=== PATIENT | female | born 1960 | race Caucasian/White ===

== ENCOUNTER → 2018-02-02 | Outpatient (CLI) | payer OTHER ==
--- NOTE | 2018-02-02 18:20 | MR ---
EXAMINATION TYPE: MR knee RT wo con DATE OF EXAM: 02/02/2018 COMPARISON: NONE HISTORY: Right knee pain, right knee effusion TECHNIQUE: Multiplanar, multisequence imaging of the right knee is performed without IV contrast. FINDINGS: MEDIAL MENISCUS: Posterior horn medial meniscus has increased signal. This has some communication wit h the inferior articular surface near its anterior extent. An oblique tear or internal derangement sh ould be considered. Anterior horn of the medial meniscus appears intact. LATERAL MENISCUS: Anterior and posterior horns are intact without tear. CRUCIATE LIGAMENTS: The anterior and posterior cruciate ligaments are intact and unremarkable. COLLATERAL LIGAMENTS: The medial collateral ligament and lateral collateral ligament complex are inta ct and unremarkable. EXTENSOR MECHANISM: Visualized quadriceps and patellar tendons are intact. EFFUSION: Small to moderate joint effusion is present. POPLITEAL CYST: There is a popliteal cyst posterior to the distal femur measuring 3.2 x 0.9 cm. TRICOMPARTMENT SPACES: There appears to be some mild narrowing of the medial lateral compartment join t spaces. CARTILAGE: There is some thinning of the medial compartment cartilage. Lateral compartment cartilage is thinning of the medial aspect of the lateral tibial plateau but otherwise has a more normal appear ance. Patellofemoral joint space cartilage appears normal. BONE MARROW SIGNAL: Some mild edema may be within the lateral tibial plateau below the lateral tibial spine on T2-weighted sequences. This is less apparent on the T1-weighted sequences. Small chondral d efect is not excluded near this level. Series 501, image 14. OTHER: There is a mass posterior to the lateral compartment joint space measuring 4.0 cm in cranioca udal dimension by 3.6 cm in transverse dimension by 1.8 cm in AP dimension. This is hyperintense on T 1-weighted images and isointense with the subcutaneous fat on T2-weighted images and proton density w eighted images. This is displacing vascular structures. This is just posterior to the joint space and extends to nearly the fibular head level. Consider a lipoma. Consider liposarcoma, MRI with contrast recommended for additional workup. IMPRESSION: 1. 4.0 x 3.6 x 1.8 cm mass posterior to the lateral tibia follows the pulse sequence of fat. A lipoma is within the differential. A liposarcoma should be evaluated for; a post contrast MRI of the knee i s recommended. 2. There is a small posterior superior popliteal cyst following the pulse sequence of fluid. 3. Oblique tear versus internal derangement posterior horn medial meniscus. 4. Mild osteoarthritic degenerative change. 5. Small contusion may be inferior to the lateral tibial spine. An osteochondral defect is within the differential just above this edema.
== END | disposition home or self-care (01) ==
LOC: RADMRIMAIN 07:52
PROVIDERS: ATTEND Orthopaedic Surgery Sports Medicine
DX: M17.11 Unilateral primary osteoarthritis, right knee (principal); M71.21 Synovial cyst of popliteal space [Baker], right knee; R22.41 Localized swelling, mass and lump, right lower limb; S80.11XA Contusion of right lower leg, initial encounter

== ENCOUNTER → 2019-01-25 | Outpatient (CLI) | payer BC ==
--- NOTE | 2019-01-25 13:29 | BD ---
EXAMINATION TYPE: Axial Bone Density DATE OF EXAM: 01/25/2019 COMPARISON: NONE CLINICAL HISTORY: Postmenopausal female. Osteoporosis screening. Height: 5 FT 1 1/2 IN Weight: 215 FRAX RISK QUESTIONS: Secondary Osteoporosis: 3. Menopause before 45: YES RISK FACTORS HISTORY OF: Family History of Osteoporosis: YES Active: NO Postmenopausal woman: PARTIAL HYST AGE 34 SYMPTOMS SHORTLY AFTER Take estrogen and/or progesterone medications: TOOK HRT BRIEFLY Lost more than 2 inches in height since high school: YES MEDICATIONS: Additional Medications: NONE Additional History: EXAM MEASUREMENTS: Bone mineral densitometry was performed using the [employer] System. Bone mineral density as measured about the Lumbar spine is: ----- L1-L4(G/cm2): 1.112 T Score Values are as follows: ----- L2: -1.3 ----- L3: -0.2 ----- L4: 0.3 ----- L1-L4: -0.6 BASELINE Bone mineral density about the R hip (g/cm2): 0.835 Bone mineral density about the L hip (g/cm2): 0.912 T Score values are as follows: -----R Neck: -1.5 -----L Neck: -0.9 -----R Total: -0.4 -----L Total: 0.2 BASELINE IMPRESSION: Osteopenia (T Score between -2.5 and -1). There is slightly increased risk of fracture and the patient may be considered for treatment. Re-Screen 2-5 years. NOTE: T-SCORE=SD OF THE YOUNG ADULT MEAN.
--- NOTE | 2019-01-26 10:19 | MM ---
Reason for exam: screening (asymptomatic). Last mammogram was performed 1 year ago. History: Patient is postmenopausal. Family history of breast cancer in mother at age 71. Core biopsy of the left breast. Excisional biopsy of the left breast. Excisional biopsy of the right breast. Took estrogen for 2 years beginning at age 36. Took progesterone for 5 years. Physical Findings: A clinical breast exam by your physician is recommended on an annual basis and results should be correlated with mammographic findings. MG 3D Screening Mammo W/Cad Bilateral CC and MLO view(s) were taken. Prior study comparison: January 19, 2018, mammogram, performed at [facility]. November 04, 2016, mammogram, performed at [facility]. July 08, 2011, bilateral digital screening mammo w/CAD. June 18, 2010, bilateral digital screening mammogram. The breast tissue is heterogeneously dense. This may lower the sensitivity of mammography. Finding #1: There is a 7 mm circumscribed oval mass in the posterior, central position of the right breast on CC (29/82). Finding #2: There are typically benign round calcifications in both breasts. Previous mammotome biopsy in the left breast. There is a chronic nodularity in the right breast. There is no discrete abnormality. New finding since January 19, 2018 and November 04, 2016. ASSESSMENT: Incomplete: need additional imaging evaluation, BI-RAD 0 RECOMMENDATION: Special view mammogram of the right breast. If lesion persists on supplemental views, image directed ultrasound is recommended. [facility] will attempt to contact patient to return for supplemental views and ultrasound if indicated.
== END ==
LOC: RADMAMWWP 09:38
PROVIDERS: ATTEND Family Medicine
DX: Z12.31 Encounter for screening mammogram for malignant neoplasm of breast (principal); M85.80 Other specified disorders of bone density and structure, unspecified site; Z78.0 Asymptomatic menopausal state
CPT/HCPCS: 77063; 77067; 77080

== ENCOUNTER → 2019-02-04 | Outpatient (CLI) | payer BC ==
--- NOTE | 2019-02-05 08:00 | MM ---
Reason for exam: additional evaluation requested from abnormal screening. Last mammogram was performed less than 1 month ago. History: Patient is postmenopausal. Family history of breast cancer in mother at age 71. Core biopsy of the left breast. Excisional biopsy of the left breast. Excisional biopsy of the right breast. Took estrogen for 2 years beginning at age 36. Took progesterone for 5 years. Physical Findings: Nurse did not find any significant physical abnormalities on exam. MG 3D Work Up W/Cad RT Spot compression CC, spot compression MLO, and LM view(s) were taken of the right breast. Prior study comparison: January 25, 2019, bilateral MG 3d screening mammo w/cad. January 19, 2018, mammogram, performed at [facility]. The breast tissue is heterogeneously dense. This may lower the sensitivity of mammography. Finding: There is a 4 mm circumscribed round mass in the lower quadrant, posterior, middle, central position of the right breast that persists on additional views. These results were verbally communicated with the patient and result sheet given to the patient on 02/04/19. ASSESSMENT: Incomplete: need additional imaging evaluation, BI-RAD 0 RECOMMENDATION: Ultrasound of the right breast.
--- NOTE | 2019-02-05 08:11 | USB ---
Reason for exam: additional evaluation requested from abnormal screening. History: Patient is postmenopausal. Family history of breast cancer in mother at age 71. Core biopsy of the left breast. Excisional biopsy of the left breast. Excisional biopsy of the right breast. Took estrogen for 2 years beginning at age 36. Took progesterone for 5 years. US Breast Workup Limited RT Right limited breast ultrasound including focal area of concern, retroareolar and axilla demonstrates a 3 x 2 x 4mm oval, cystic lesion at 6 o'clock. This likely corresponds to the posterior central asymmetric density. 6 month follow up mammogram recommended. These results were verbally communicated with the patient and result sheet given to the patient on 02/04/19. ASSESSMENT: Probably benign, BI-RAD 3 RECOMMENDATION: Follow-up diagnostic mammogram of the right breast in 6 months.
== END ==
LOC: RADMAMWWP 15:06
PROVIDERS: ATTEND Family Medicine
DX: R92.8 Other abnormal and inconclusive findings on diagnostic imaging of breast (principal)
CPT/HCPCS: 77061; 77065

== ENCOUNTER → 2019-08-23 | Outpatient (CLI) | payer BC ==
--- NOTE | 2019-08-23 09:56 | MM ---
Reason for exam: follow-up at short interval from prior study. Last mammogram was performed 7 months ago. History: Patient is postmenopausal. Family history of breast cancer in mother at age 71. Core biopsy of the left breast. Excisional biopsy of the left breast. Excisional biopsy of the right breast. Took estrogen for 2 years beginning at age 36. Took progesterone for 5 years. Physical Findings: Nurse did not find any significant physical abnormalities on exam. MG 3D Diag Mammo W/Cad RT CC and MLO view(s) were taken of the right breast. Prior study comparison: February 04, 2019, right breast MG 3d work up w/cad RT. January 25, 2019, bilateral MG 3d screening mammo w/cad. The breast tissue is heterogeneously dense. This may lower the sensitivity of mammography. No suspicious abnormality. Right 4.5mm lower inner quadrant middle depth mass, cyst on prior ultrasound, is stable back to 2016 subtly. These results were verbally communicated with the patient and result sheet given to the patient on 08/23/19. ASSESSMENT: Benign, BI-RAD 2 RECOMMENDATION: Return to routine screening mammogram schedule for both breasts. Back on schedule for January 2020.
== END | disposition home or self-care (01) ==
LOC: RADMAMWWP 07:43
PROVIDERS: ATTEND Family Medicine
DX: R92.8 Other abnormal and inconclusive findings on diagnostic imaging of breast (principal)
CPT/HCPCS: 77061; 77065

== ENCOUNTER → 2020-04-21 | Outpatient (CLI) | payer BC ==
--- NOTE | 2020-04-25 08:25 | MM ---
Reason for exam: screening (asymptomatic). Last mammogram was performed 8 months ago. History: Patient is postmenopausal. Family history of breast cancer in mother at age 71. Core biopsy of the left breast. Excisional biopsy of the left breast. Excisional biopsy of the right breast. Took estrogen for 2 years beginning at age 36. Took progesterone for 5 years. Physical Findings: A clinical breast exam by your physician is recommended on an annual basis and results should be correlated with mammographic findings. MG 3D Screening Mammo W/Cad Bilateral CC and MLO view(s) were taken. Prior study comparison: August 23, 2019, right breast MG 3d diag mammo w/cad RT. February 04, 2019, right breast MG 3d work up w/cad RT. The breast tissue is heterogeneously dense. This may lower the sensitivity of mammography. There are benign appearing round calcifications bilaterally. Previous mammotome biopsy in the left breast. There is chronic nodularity in the right breast. There is no discrete abnormality. ASSESSMENT: Benign, BI-RAD 2 RECOMMENDATION: Routine screening mammogram of both breasts in 1 year.
== END | disposition home or self-care (01) ==
LOC: RADMAMWWP 14:59
PROVIDERS: ATTEND Family Medicine
DX: Z80.3 Family history of malignant neoplasm of breast (principal)
CPT/HCPCS: 77063; 77067

== ENCOUNTER → 2021-02-28 | Outpatient (CLI) | payer BC | END | disposition home or self-care (01) | LOC: LABPAT 08:23 | PROVIDERS: ATTEND Surgery | DX: Z20.822 Contact with and (suspected) exposure to COVID-19 (principal) | CPT/HCPCS: U0003; C9803; U0005 ==

== ENCOUNTER → 2021-03-02 | Day surgery (SDC) | payer BC ==
[2021-02-27 17:38] VITALS: BMI 38.0
[~2021-03-02] MED LIST: LACTATED RINGERS 1,000 ML IV SCH; LIDOCAINE 1% INJ 10MG/ML (20 ML MDV) ONE; PROPOFOL 10 MG/ML 20 ML VIAL IV ONE
[2021-03-02 08:34] VITALS: TEMP 97.7
[2021-03-02 08:45] LABS: Glucose,Whole Blood 127 mg/dL (75-99)
--- NOTE | 2021-03-02 08:48 | P.GSHP ---
History of Present Illness H&P Date: 03/02/21 60-year-old female presents for an upper endoscopy. She has had recent epigastric pain and increase in reflux symptoms. She states she has had this for many years, however symptoms have worsened recently. She states she has tried Prilosec in the past with success. She has stopped taking that medication on her own. She denies any nausea or vomiting. - Review of Systems All systems: negative Past Medical History Past Medical History: GERD/Reflux, Hyperlipidemia Additional Past Medical History / Comment(s): hypoglycemia History of Any Multi-Drug Resistant Organisms: None Reported Past Surgical History: Breast Surgery, Section, Hysterectomy Additional Past Surgical History / Comment(s): COLONOSCOPY. LT/RT LUMPECTOMY Past Anesthesia/Blood Transfusion Reactions: Postoperative Nausea & Vomiting (PONV) Smoking Status: Former smoker - Past Family History Mother Family Medical History: Cancer Daughter(s) Family Medical History: Deep Vein Thrombosis (DVT) Medications and Allergies Home Medications Medication Instructions Recorded Confirmed Type Ezetimibe [Zetia] 10 mg PO HS 02/27/21 03/02/21 History Allergies Allergy/AdvReac Type Severity Reaction Status Date / Time Penicillins Allergy Rash/Hives Verified 03/02/21 08:29 Surgical - Exam Osteopathic Statement: *. No significant issues noted on an osteopathic structural exam other than those noted in the History and Physical/Consult. Vital Signs Temp Resp BP Pulse Ox 97.7 F 16 134/61 96 03/02/21 08:32 03/02/21 08:32 03/02/21 08:32 03/02/21 08:32 - General well nourished, no distress - Respiratory normal respiratory effort - Abdomen Abdomen: soft, non tender Results - Labs Abnormal Lab Results - Last 24 Hours (Table) 03/02/21 Range/Units 08:40 POC Glucose (mg/dL) 127 H (75-99) mg/dL Assessment and Plan Plan: 60-year-old female with history of gastroesophageal reflux disease and epigastric pain presents for upper endoscopy. Risks, benefits and alternatives were provided to the patient. She did provide consent. Further recommendations will be made after procedure is completed.
--- NOTE | 2021-03-02 08:59 | P.PCN ---
Date of Procedure: 03/02/21 Preoperative Diagnosis: GERD Epigastric pain Postoperative Diagnosis: GERD Gastritis Duodenitis Procedure(s) Performed: EGD with biopsy Anesthesia: BURTON Surgeon: Igor Templeton Pathology: other (Biopsies of duodenum, antrum, esophagus) Condition: stable Disposition: same day Indications for Procedure: 60-year-old female presents today for upper endoscopy. She has had recent worsening of symptoms of reflux and epigastric pain. Risks, benefits and alternatives were provided to the patient. She did provide consent prior to the endoscopy suite. Operative Findings: Gastritis Duodenitis Description of Procedure: The patient underwent a venotomy suite and placed in left lateral decubitus position and adequate sedation was achieved using conscious sedation. A bite block was placed and an endoscope was placed in the oropharynx and advanced under endoscopic visualization. The endoscope was advanced through the esophagus into the stomach, through the gastric antrum and in through the pylorus. The third portion of the duodenum was visualized. The endoscope was then slowly withdrawn. The first portion of duodenum was noted to have inflammatory changes. Biopsies were taken. The antrum was noted to have inflammatory changes. Biopsies were taken. The gastric body distended normally and the gastric folds appeared normal and flattened with insufflation. No evidence of ulceration. A rectopexy of the fundus and GE junction revealed no significant hiatal hernia. The esophagus appeared endoscopically normal. Biopsies were taken. Excess air was removed and the scope was withdrawn. The procedure at this point was completed and the patient was returned to postanesthesia care unit in stable condition.
[2021-03-02 09:27] VITALS: BP 115/71; PULSE 75; RESP 16
== END | disposition home or self-care (01) ==
LOC: ORWHC2ENDO 08:17
PROVIDERS: ATTEND Surgery
DX: K21.00 Gastro-esophageal reflux disease with esophagitis, without bleeding (principal); K29.50 Unspecified chronic gastritis without bleeding; K29.80 Duodenitis without bleeding; K31.89 Other diseases of stomach and duodenum; E78.5 Hyperlipidemia, unspecified; E16.2 Hypoglycemia, unspecified; Z98.890 Other specified postprocedural states; Z90.710 Acquired absence of both cervix and uterus; Z91.89 Other specified personal risk factors, not elsewhere classified; Z87.891 Personal history of nicotine dependence; Z79.899 Other long term (current) drug therapy; Z88.0 Allergy status to penicillin; Z80.9 Family history of malignant neoplasm, unspecified; Z82.49 Family history of ischemic heart disease and other diseases of the circulatory system
CPT/HCPCS: 88305; 43239; J2001; J2704

== ENCOUNTER → 2021-08-06 | Outpatient (CLI) | payer BC ==
--- NOTE | 2021-08-08 09:38 | MM ---
Reason for exam: screening (asymptomatic). Last mammogram was performed 1 year and 3 months ago. History: Patient is postmenopausal. Family history of breast cancer in mother at age 71. Core biopsy of the left breast. Excisional biopsy of the left breast. Excisional biopsy of the right breast. Took estrogen for 2 years beginning at age 36. Took progesterone for 5 years. Physical Findings: A clinical breast exam by your physician is recommended on an annual basis and results should be correlated with mammographic findings. MG 3D Screening Mammo W/Cad Bilateral CC, MLO, and XCCL view(s) were taken. Prior study comparison: April 21, 2020, bilateral MG 3d screening mammo w/cad. August 23, 2019, right breast MG 3d diag mammo w/cad RT. January 25, 2019, bilateral MG 3d screening mammo w/cad. January 19, 2018, mammogram, performed at [facility]. There are scattered fibroglandular densities. Previous mammotome biopsy in the left breast. No significant changes when compared with prior studies. ASSESSMENT: Negative, BI-RAD 1 RECOMMENDATION: Routine screening mammogram of both breasts in 1 year.
== END | disposition home or self-care (01) ==
LOC: RADMAMWWP 14:04
PROVIDERS: ATTEND Family Medicine
DX: Z12.31 Encounter for screening mammogram for malignant neoplasm of breast (principal); Z78.0 Asymptomatic menopausal state; Z80.3 Family history of malignant neoplasm of breast
CPT/HCPCS: 77063; 77067

== ENCOUNTER → 2022-09-06 | Outpatient (CLI) | payer BC ==
--- NOTE | 2022-09-09 10:13 | MM ---
Reason for Exam: Screening (asymptomatic). Last mammogram was performed 1 year(s) and 1 month(s) ago. Patient History: Menarche at age 13. First Full-Term at age 19. Hysterectomy at age 35. Postmenopausal. Estrogen for 2 years from age 36 until age 38. Patient used Progesterone for 5 years. Core Biopsy on the Left side. Excisional Biopsy on the Right side. Excisional Biopsy on the Left side. Mother had breast cancer, right, age 71. Mother had breast cancer, left, age 73. Mother had breast cancer, bilateral, age 78. Sister had breast cancer, age 56. Sister tested for BRCA1 outcome was negative. Risk Values: Catarina 5 year model risk: 8.4%. NCI Lifetime model risk: 32.7%. Prior Study Comparison: 08/23/2019 Right Diagnostic Mammogram, [facility]. 04/21/2020 Bilateral Screening Mammogram, [facility] 08/06/2021 Bilateral Screening Mammogram, [facility]. Tissue Density: There are scattered fibroglandular densities. Findings: Analyzed By CAD. Occasional small scattered round to auscultation bilaterally is redemonstrated. Mammotome biopsy clip left breast redemonstrated. Well-defined round 6 mm mass in the right breast is stable or smaller in size from prior studies posteriorly. Benign-appearing bilateral axillary lymph nodes are redemonstrated. There is no suspicious new group of microcalcifications or new suspicious mass in either breast. Overall Assessment: Benign, BI-RAD 2 Management: Screening Mammogram of both breasts in 1 year. A clinical breast exam by your physician is recommended on an annual basis and results should be correlated with mammographic findings. Electronically signed and approved by: Deni Curtis M.D.
== END | disposition home or self-care (01) ==
LOC: RADMAMWWP 12:42
PROVIDERS: ATTEND Family Medicine
DX: Z12.31 Encounter for screening mammogram for malignant neoplasm of breast (principal); Z80.3 Family history of malignant neoplasm of breast; Z78.0 Asymptomatic menopausal state
CPT/HCPCS: 77063; 77067

== ENCOUNTER → 2023-11-03 | Outpatient (CLI) | payer BC ==
--- NOTE | 2023-11-04 21:20 | MM ---
Reason for Exam: Screening (asymptomatic). Last mammogram was performed 1 year(s) and 2 month(s) ago. Patient History: Menarche at age 13. First Full-Term at age 19. Hysterectomy at age 35. Postmenopausal. Estrogen for 2 years from age 36 until age 38. Patient used Progesterone for 5 years. Core Biopsy on the Left side. Excisional Biopsy on the Right side. Excisional Biopsy on the Left side. Mother had breast cancer, right, age 71. Mother had breast cancer, left, age 73. Mother had breast cancer, bilateral, age 78. Sister had breast cancer, age 56. Sister tested for BRCA1 outcome was negative. Risk Values: Liana 5 year model risk: 8.9%. NCI Lifetime model risk: 31.0%. Prior Study Comparison: 04/21/2020 Bilateral Screening Mammogram, [facility]. 08/06/2021 Bilateral Screening Mammogram, [facility]. 09/06/2022 Bilateral MG 3D screening mammo w/cad, [facility]. Tissue Density: There are scattered fibroglandular densities. Findings: Analyzed By CAD. There is a microclip left breast from prior biopsy. On the left CC view in the subareolar region, there is increasing asymmetric density for which further evaluation is recommended. No other significant change. Overall Assessment: Incomplete: need additional imaging evaluation, BI-RAD 0 Management: Special View Mammogram of the left breast. Diagnostic Breast Ultrasound of the left breast. Additional views to include spot 3-D CC, 3-D CC rolled, and 3-D lateral views. Given the patient's high risk, complete left breast ultrasound to follow. [facility] will attempt to contact patient to return for supplemental views and ultrasound if indicated. SEE NOTE BELOW IN REGARDS TO PATIENT'S INCREASED FIVE-YEAR LIANA SCORE AND INCREASED LIFETIME RISK SCORE. Note on Liana scores and lifetime risk: 1. A Liana score greater than 3% is considered moderate risk. If this is the case, consider specialist referral to assess eligibility for a risk reducing agent. 2. If overall lifetime risk for the development of breast cancer is 20% or higher, the patient may qualify for future screening with alternating mammogram and breast MRI. Electronically signed and approved by: Cha Tierney M.D. Radiologist
== END | disposition home or self-care (01) ==
LOC: RADMAMWWP 15:02
PROVIDERS: ATTEND Family Medicine
DX: Z12.31 Encounter for screening mammogram for malignant neoplasm of breast (principal); Z80.3 Family history of malignant neoplasm of breast; Z78.0 Asymptomatic menopausal state
CPT/HCPCS: 77063; 77067

== ENCOUNTER → 2023-11-19 | Outpatient (CLI) | payer BC ==
--- NOTE | 2023-11-19 10:58 | MM ---
Reason for Exam: Follow-up at short interval from prior study. Last screening mammogram was performed less than 1 month ago. Patient History: Menarche at age 13. First Full-Term at age 19. Hysterectomy at age 35. Postmenopausal. Estrogen for 2 years from age 36 until age 38. Patient used Progesterone for 5 years. Core Biopsy on the Left side. Excisional Biopsy on the Right side. Excisional Biopsy on the Left side. Mother had breast cancer, right, age 71. Mother had breast cancer, left, age 73. Mother had breast cancer, bilateral, age 78. Sister had breast cancer, age 56. Sister tested for BRCA1 outcome was negative. Risk Values: Catarina 5 year model risk: 8.9%. NCI Lifetime model risk: 31.0%. Prior Study Comparison: 08/06/2021 Bilateral Screening Mammogram, [facility]. 09/06/2022 Bilateral MG 3D screening mammo w/cad, [facility]. 11/03/2023 Bilateral MG 3D screening mammo w/cad, [facility]. Tissue Density: Left: There are scattered fibroglandular densities. Analyzed By CAD. Overall Assessment: Incomplete: need additional imaging evaluation, BI-RAD 0 Management: Diagnostic Breast Ultrasound of the left breast. Electronically signed and approved by: Boston Bright DO
--- NOTE | 2023-11-19 11:27 | USB ---
Reason for Exam: Additional evaluation requested from prior study. Patient History: Menarche at age 13. First Full-Term at age 19. Hysterectomy at age 35. Postmenopausal. Estrogen for 2 years from age 36 until age 38. Patient used Progesterone for 5 years. Core Biopsy on the Left side. Excisional Biopsy on the Right side. Excisional Biopsy on the Left side. Mother had breast cancer, right, age 71. Mother had breast cancer, left, age 73. Mother had breast cancer, bilateral, age 78. Sister had breast cancer, age 56. Sister tested for BRCA1 outcome was negative. Risk Values: Catarina 5 year model risk: 8.9%. NCI Lifetime model risk: 31.0%. Technique: Method: Targeted. Prior Study Comparison: 08/06/2021 Bilateral Screening Mammogram, [facility]. 09/06/2022 Bilateral MG 3D screening mammo w/cad, [facility]. 11/03/2023 Bilateral MG 3D screening mammo w/cad, [facility]. Findings: The axilla of the left breast and the retroareolar of the left breast were scanned. Electronically signed and approved by: Boston Bright DO
== END | disposition home or self-care (01) ==
LOC: RADMAMWWP 10:29
PROVIDERS: ATTEND Family Medicine
DX: R92.322 Mammographic fibroglandular density, left breast (principal); Z80.3 Family history of malignant neoplasm of breast; Z78.0 Asymptomatic menopausal state
CPT/HCPCS: 77061; 77065

== ENCOUNTER → 2023-12-05 | Day surgery (SDC) | payer BC ==
--- NOTE | 2023-12-05 16:26 | USB ---
Risk Values: Catarina 5 year model risk: 8.9%. NCI Lifetime model risk: 31.0%. Findings: Patient was brought to the ultrasound suite and reimaged. Real-time observation and real-time scanning was performed. The area in question could not be read localized. The area however was identified by ultrasound. The findings can be compatible with a ligament. The shadowing abnormality could not be reproduced in 2 planes. Findings were discussed with the patient. Findings are likely benign. Follow up can be performed in 6 months. Management: Diagnostic Breast Ultrasound of the left breast in 6 months. A clinical breast exam by your physician is recommended on an annual basis and results should be correlated with mammographic findings. This exam should not preclude additional follow-up of suspicious palpable abnormalities. Results were given to the patient verbally at the time of exam. Electronically signed and approved by: Kai Karimi D.O. Radiologis
== END ==
LOC: RADUSWWP 10:03
PROVIDERS: ATTEND Surgery
DX: Z53.8 Procedure and treatment not carried out for other reasons (principal); R92.8 Other abnormal and inconclusive findings on diagnostic imaging of breast

== ENCOUNTER → 2024-05-31 | Outpatient (CLI) | payer BC ==
--- NOTE | 2024-05-31 10:38 | USB ---
Reason for Exam: Follow-up at short interval from prior study. Patient History: Menarche at age 13. First Full-Term at age 19. Hysterectomy at age 35. Postmenopausal. Estrogen for 2 years from age 36 until age 38. Patient used Progesterone for 5 years. Core Biopsy on the Left side. Excisional Biopsy on the Right side. Excisional Biopsy on the Left side. 12/05/2023, US discontinued breast bx LT on the left side. Mother had breast cancer, right, age 71. Mother had breast cancer, left, age 73. Mother had breast cancer, bilateral, age 78. Sister had breast cancer, age 56. Sister tested for BRCA1 outcome was negative. Risk Values: Catarina 5 year model risk: 8.9%. NCI Lifetime model risk: 31.0%. Technique: Method: Targeted. Prior Study Comparison: 09/06/2022 Bilateral MG 3D screening mammo w/cad, [facility]. 11/03/2023 Bilateral MG 3D screening mammo w/cad, [facility]. 11/19/2023 Left MG 3D work up w/cad LT, [facility]. Findings: The lower section of the breast of the left breast, the axilla of the left breast and the retroareolar of the left breast were scanned. No solid or cystic masses are identified.. Overall Assessment: Negative, BI-RAD 1 Management: Screening Mammogram of both breasts in 6 months. A clinical breast exam by your physician is recommended on an annual basis and results should be correlated with mammographic findings. This exam should not preclude additional follow-up of suspicious palpable abnormalities. Results were given to the patient verbally at the time of exam. Electronically signed and approved by: Kai Karimi D.O. Radiologis
== END | disposition home or self-care (01) ==
LOC: RADUSWWP 10:04
PROVIDERS: ATTEND Internal Medicine
DX: R92.8 Other abnormal and inconclusive findings on diagnostic imaging of breast (principal); Z78.0 Asymptomatic menopausal state; Z80.3 Family history of malignant neoplasm of breast

== ENCOUNTER → 2025-05-31 | Outpatient (CLI) | payer MEDICARE, OTHER | LOC: CPPFTMAIN 14:13 | PROVIDERS: ATTEND Internal Medicine | DX: J98.01 Acute bronchospasm (principal); Z88.0 Allergy status to penicillin; Z87.891 Personal history of nicotine dependence | CPT/HCPCS: 94060; 94726; 94729 ==

== ENCOUNTER 2025-06-14 09:28 | Day surgery (SDC) | payer BC, MEDICARE ==
[~2025-06-14 09:28] MED LIST changes: -LACTATED RINGERS 1,000 ML IV SCH; +LIDOCAINE 1% (10MG/ML) FOR IV START INTRADERMA PRN; -LIDOCAINE 1% INJ 10MG/ML (20 ML MDV) ONE; -PROPOFOL 10 MG/ML 20 ML VIAL IV ONE
[2025-06-14 10:19] VITALS: TEMP 97.1
[2025-06-14] MEDS: IV FLUID CONTINUATION 1,000 ML IV ONE (10:19)
[2025-06-14] MEDS: LACTATED RINGERS 1,000 ML IV SCH (10:20)
[2025-06-14 10:23] LABS: Glucose,Whole Blood 123 mg/dL (70-110)
[2025-06-14] MEDS ORDERED: ONDANSETRON 4 MG/2 ML VIAL ONE (10:41)
[2025-06-14] MEDS ORDERED: PROPOFOL 10 MG/ML 20 ML VIAL IV ONE (10:41)
--- NOTE | 2025-06-14 11:23 | P.PCN ---
Date of Procedure: 06/14/25 Procedure(s) Performed: BRIEF HISTORY: Patient is a 64-year-old pleasant white female scheduled for an elective colonoscopy as a part of screening for colon cancer. PROCEDURE PERFORMED: Colonoscopy with snare polypectomy. PREOPERATIVE DIAGNOSIS: Screening for colon cancer. IV sedation per Anesthesia. PROCEDURE: After informed consent was obtained, the patient, was brought into the endoscopy unit. IV sedation was administered by Anesthesia under continuous monitoring. Digital rectal examination was normal. Initially the Olympus CF-160 flexible video colonoscope was then inserted in the rectum, gradually advanced into the cecum without any difficulty. Careful examination was performed as the scope was gradually being withdrawn. Ileocecal valve and the appendiceal orifice were visualized and appeared normal. Prep was excellent. Mucosa of the cecum appeared normal. Descending colon there was an 8 mm sessile polyp removed by cold snare polypectomy. Rest of the, ascending colon, transverse colon, descending colon, in the distal sigmoid colon there was a 4 mm polyp removed by cold snare polypectomy. Sigmoid colon, and rectum appeared normal. Retroflexion was performed in the rectum and no lesions were seen. The patient tolerated the procedure well. IMPRESSION: 8 mm ascending colon polyp status post cold snare polypectomy 4 mm distal sigmoid colon polyp status post cold snare polypectomy RECOMMENDATIONS: Findings of this examination were discussed with the patient as well as her family. She was advised to follow-up with the biopsy results. If the biopsy reveals adenoma she can have repeat colonoscopy in 5 years..
[2025-06-14 11:43] VITALS: BP 110/67; PULSE 63; RESP 16
[2025-06-14 11:45] LABS: Glucose,Whole Blood 93 mg/dL (70-110)
== END 2025-06-14 12:08 | disposition home or self-care (01) ==
LOC: ORWHC2ENDO 09:28
PROVIDERS: ATTEND Internal Medicine Gastroenterology
DX: Z12.11 Encounter for screening for malignant neoplasm of colon (principal); D12.2 Benign neoplasm of ascending colon; D12.5 Benign neoplasm of sigmoid colon; K21.9 Gastro-esophageal reflux disease without esophagitis; E78.5 Hyperlipidemia, unspecified; Z88.0 Allergy status to penicillin; Z88.8 Allergy status to other drugs, medicaments and biological substances; Z88.9 Allergy status to unspecified drugs, medicaments and biological substances; Z79.84 Long term (current) use of oral hypoglycemic drugs
CPT/HCPCS: 88305; 45385; J2405; J2704